=== PATIENT | male | born 1995 | race Hispanic/Latino ===

== ENCOUNTER 2017-10-06 06:29 | Day surgery (SDC) | payer OTHER ==
[2017-10-06] MEDS: LR 1,000 ML IV (07:14)
[2017-10-06] MEDS ORDERED: fentaNYL 100 MCG/2 ML INJECTION (J3010) As Ordered ×2 (08:09→08:52)
[2017-10-06] MEDS ORDERED: MIDAZOLAM INJ 2 MG/2 ML VIAL (J2250) As Ordered (08:09)
[2017-10-06] MEDS ORDERED: PROPOFOL 200 MG/20 ML VIAL As Ordered ×2 (08:19→08:37)
[2017-10-06] MEDS ORDERED: METOCLOPRAMIDE INJ 10MG/2ML VIAL (J2765) As Ordered (08:19)
[2017-10-06] MEDS ORDERED: dexameTHASONE 4 MG/ML 1ML VIAL (J1100) As Ordered ×2 (08:19→08:20)
[2017-10-06] MEDS ORDERED: ONDANSETRON 4MG/2ML VIAL (J2405) As Ordered (08:19)
[2017-10-06] MEDS ORDERED: SUCCINYLCHOLINE 100 MG/5 ML SYRINGE (J0330) As Ordered (08:19)
[2017-10-06] MEDS ORDERED: LIDOCAINE 2% INJ 100 MG/5 ML SDV (FOR ANES.) As Ordered (08:19)
[2017-10-06] MEDS ORDERED: ROCURONIUM BROMIDE 50 MG/5 ML VIAL As Ordered (08:19)
[2017-10-06] MEDS ORDERED: DESFLURANE 240 ML INHALANT As Ordered (08:33)
[2017-10-06] MEDS: BUPIVACAINE HCL 0.25% 10 ML VIAL As Ordered (08:57)
[2017-10-06] MEDS: LIDOCAINE 1% MDV 20ML VIAL As Ordered (08:57)
[2017-10-06] MEDS ORDERED: fentaNYL 100 MCG/2 ML INJECTION (J3010) IV (09:30)
[2017-10-06] MEDS ORDERED: LR 1,000 ML IV (09:30)
[2017-10-06] MEDS ORDERED: PERCOCET 5MG/325MG TAB As Ordered (09:32)
[2017-10-06] MEDS: ONDANSETRON 4MG/2ML VIAL (J2405) IV (09:39)
[2017-10-06] MEDS: PERCOCET 5MG/325MG TAB PO ×2 (09:39→10:07)
[2017-10-06] MEDS: METOCLOPRAMIDE INJ 10MG/2ML VIAL (J2765) IV (10:02)
== END 2017-10-06 11:20 | disposition home or self-care (01) ==
LOC: M SDC 06:29
DX: J35.1 Hypertrophy of tonsils (principal); J35.01 Chronic tonsillitis; R06.83 Snoring
CPT/HCPCS: 42826

== ENCOUNTER 2017-10-08 11:24 | Emergency (ER) | payer OTHER ==
[2017-10-08 13:29] LABS: BASO % 0.1 % (0.0-1.0); HEMATOCRIT 45.2 % (42.0-52.0); HEMOGLOBIN 15.4 g/dl (14.0-18.0); IMMATURE GRANULOCYTE # 0.1 10^3/uL (0-0); IMMATURE GRANULOCYTE % 0.5 % (0-0); LYMPH # 2.6 10^3/uL (1.5-6.5); LYMPH % 14.9 % (24.0-44.0); MEAN CORPUSCULAR HEMOGLOBIN 30.6 pg (27.0-33.0); MEAN CORPUSCULAR HGB CONC 34.1 g/dl (32.0-36.5); MEAN CORPUSCULAR VOLUME 89.7 fl (80.0-96.0); MONO # 1.8 10^3/uL (0.0-0.8); MONO % 10.3 % (0.0-5.0); NEUTROPHILS # 12.7 10^3/uL (1.8-7.7); NEUTROPHILS % 74.2 % (36.0-66.0); PLATELET COUNT, AUTOMATED 226 10^3/uL (150-450); RED BLOOD COUNT 5.04 10^6/uL (4.30-6.10); WHITE BLOOD COUNT 17.1 10^3/uL (4.0-10.0)
[2017-10-08] MEDS: dexameTHASONE 20 MG/5 ML VIAL (J1100) IV (13:34)
[2017-10-08] MEDS: KETOROLAC 30 MG/ML VIAL (J1885) IV (13:34)
[2017-10-08] MEDS: NS 1,000 ML IV (13:35)
[2017-10-08 13:57] LABS: ANION GAP 8 MEQ/L (8-16); BLOOD UREA NITROGEN 10 MG/DL (7-18); CARBON DIOXIDE LEVEL 30 MEQ/L (21-32); CHLORIDE LEVEL 102 MEQ/L (98-107); CREATININE FOR GFR 1.08 MG/DL (0.70-1.30); GLUCOSE, FASTING 88 MG/DL (70-100); POTASSIUM SERUM 3.7 MEQ/L (3.5-5.1); SODIUM LEVEL 140 MEQ/L (136-145)
== END 2017-10-08 14:50 | disposition home or self-care (01) ==
LOC: M ED 11:24
DX: G89.18 Other acute postprocedural pain (principal); Z90.89 Acquired absence of other organs
CPT/HCPCS: J1100

== ENCOUNTER → 2018-01-09 | Outpatient (CLI) | payer OTHER ==
[~2018-01-09] MED LIST: CONRAY-43 43% 50ML VIAL (Q9960) As Ordered; PROHANCE 279.3MG/ML 5ML VIAL (A9576) As Ordered
== END ==
LOC: M RADPRO 13:11
DX: M25.552 Pain in left hip (principal)
CPT/HCPCS: 27093

== ENCOUNTER → 2018-03-28 | Outpatient (CLI) | payer OTHER ==
[~2018-03-28] MED LIST changes: +LIDOCAINE 1% MDV 20ML VIAL As Ordered; -PROHANCE 279.3MG/ML 5ML VIAL (A9576) As Ordered; +TRIAMCINOLONE ACETONIDE SUSP 40 MG/ML VIAL (J3301) As Ordered
== END ==
LOC: M RADPRO 10:04
DX: M25.852 Other specified joint disorders, left hip (principal)
CPT/HCPCS: 20610

== ENCOUNTER → 2018-06-28 | Outpatient (CLI) | payer OTHER | LOC: M RADPRO 10:12 | DX: M25.552 Pain in left hip (principal); M75.42 Impingement syndrome of left shoulder; M24.152 Other articular cartilage disorders, left hip | CPT/HCPCS: 20610 ==